=== PATIENT | female | born 1970 | race Caucasian/White ===

== ENCOUNTER 2019-10-08 05:58 | Day surgery (SDC) | payer OTHER ==
[2019-10-05 10:46] LABS: HEMATOCRIT 41.1 % (36.0-47.0); MEAN CORPUSCULAR HEMOGLOBIN 31.1 pg (27.0-33.4); MEAN CORPUSCULAR VOLUME 91 fl (80-97); PLATELET COUNT 152 10^3/uL (150-450); RED CELL DISTRIBUTION WIDTH 12.9 % (11.5-14.0); WHITE BLOOD COUNT 3.5 10^3/uL (4.0-10.5)
[2019-10-05 11:00] LABS: ANION GAP 7 (5-19); BLOOD UREA NITROGEN 10 mg/dL (7-20); CALCIUM 8.9 mg/dL (8.4-10.2); CARBON DIOXIDE 25 mmol/L (22-30); CHLORIDE 109 mmol/L (98-107); GLUCOSE 85 mg/dL (75-110); POTASSIUM 3.2 mmol/L (3.6-5.0)
--- NOTE | 2019-10-05 21:37 | EKG REPORT ---
SEVERITY:- NORMAL ECG - SINUS RHYTHM : Confirmed by: Sanjay Gross 05-Oct-2019 21:37:30
[~2019-10-08 05:58] MED LIST: CEFAZOLIN 2 GM/D5W RTU 2 GM/50 ML RTUPB IV ONE; CEFAZOLIN SODIUM 2 GM in DEXTROSE 5%-WATER 100 ML IV PRN; LACTATED RINGERS 1000 ML IV PRN; LIDOCAINE 0.5% INJ-PF (5 MG/ML) 50 ML SDV SUBCUT PRN
[2019-10-08] MEDS ORDERED: FENTANYL CITRATE INJ/PF 250 MCG/5 ML AMPULE ONE (07:13)
[2019-10-08] MEDS ORDERED: MORPHINE SULFATE 10 MG/ML INJ ONE (07:14)
[2019-10-08] MEDS ORDERED: PROPOFOL INJ 200 MG/20 ML VIAL IV ONE (07:14)
[2019-10-08] MEDS ORDERED: BUPIVACAINE INJ/PF LIPOSOME/PF 266 MG/20 ML SDV ONE (07:14)
[2019-10-08] MEDS ORDERED: MIDAZOLAM 2 MG/2 ML INJ ONE (07:15)
[2019-10-08] MEDS ORDERED: FENTANYL CITRATE INJ/PF 100 MCG/2 ML AMPUL IV PRN (09:01)
[2019-10-08] MEDS ORDERED: MORPHINE SULFATE 10 MG/ML INJ IV PRN (09:01)
[2019-10-08] MEDS ORDERED: DIPHENHYDRAMINE HCL 50 MG/ML VIAL IV PRN (09:01)
[2019-10-08] MEDS ORDERED: MEPERIDINE HCL/PF INJ 25 MG/1 ML DISP.SYRIN IV PRN (09:01)
[2019-10-08] MEDS ORDERED: PROMETHAZINE HCL INJ 25 MG/1 ML VIAL IV PRN (09:01)
--- NOTE | 2019-10-08 09:30 | Operative Report ---
Nonrecallable Operative Report DATE OF SURGERY: 10/08/19 PREOPERATIVE DIAGNOSIS: Inguinal hernia right POSTOPERATIVE DIAGNOSIS: Right femoral hernia OPERATION: Diagnostic laparoscopy with Prashanth repair of right femoral hernia SURGEON: EDA LEE 1[employer] SUPERVISOR: CHASITY SARABIA ANESTHESIA: GA TISSUE REMOVED OR ALTERED: None COMPLICATIONS: None ESTIMATED BLOOD LOSS: 10 cc INTRAOPERATIVE FINDINGS: See note PROCEDURE: Patient was brought to the operating awake alert stable condition placed in the operative table supine position induced under general anesthesia and intubated the abdomen was prepped and draped in usual sterile fashion a Winkler catheter was placed. After appropriate timeout site verification the procedure commenced. A curvilinear infraumbilical incision was made with a 15 blade dissection was carried down through subcutaneous tissue with Bovie cautery the rectus fascia was identified it was opened transversely with a 15 blade the posterior sheath was identified after we retracted the rectus muscle laterally. On top of the posterior sheath we then placed the spacemaker balloon. This this was easily manipulated down to the pubic symphysis. We started insufflating the balloon under direct vision as we insufflated the balloon we felt a pop and then immediately noted the intra-abdominal contents. It appeared that the posterior peritoneum ruptured from previous scar tissue as the patient had a previous . We therefore remove the balloon. I then placed the working trocar into the peritoneum and made intra-abdominal visualization which revealed no evidence of a direct inguinal hernia however I could not really identify the femoral canal. There he there was no significant incarceration of bowel or omentum into a direct or indirect inguinal hernia sac. I therefore removed the camera and reduce the pneumoperitoneum we then made a incision in the right groin and the inguinal crease with a 15 blade we carried dissection down through subcutaneous tissue with Bovie cautery we then identified the external oblique this was opened in line with its fibers I mobilized the external oblique to gain better access to the internal ring and noted no evidence of a hernia I did identify the round ligament. However upon dissecting the round ligament did not identify a direct or indirect sac. I then mobilized the transversalis fascia along the pelvic rim I did identify the femoral canal it appeared that there was a plug of fat within the femoral canal up against the femoral vein which could be corresponding to the lump that the patient felt. And there was a weakness in the floor of the inguinal canal. I therefore elected to perform a Prashanth repair to close the femoral week this and the inguinal floor. We mobilized we identified the Martell's ligament and placed 0 Ethibond sutures between the in inguinal ligament Martell's ligament and the conjoined tendon. Thereby closing off the femoral canal. The transition stitch was made identifying the femoral vein sheath Martell's ligament and the conjoined tendon this was also closed. Once the femoral canal was repaired we anesthetized the area with Exparel solution and then closed the external oblique with a running 2-0 Vicryl suture we closed the Rosa Maria's fascia with interrupted 3-0 Vicryl suture and skin was closed with intracuticular 4-0 Monocryl. At the umbilical port site we closed the fascia with 0 Vicryl and then closed the skin with 4-0 Monocryl Steri-Strips completed the procedure estimated blood loss was less than 10 cc sponge and needle counts correct x2 the patient was awakened in the operating extubated transferred recovery in stable condition no complications. CHUCHO Summers was present for the entire procedure for help with wound retraction wound closure
[2019-10-08] MEDS ORDERED: OXYCODONE-ACETAMINOPHEN 5-325 MG TABLET PO PRN (09:34)
--- NOTE | 2019-10-08 09:34 | Discharge Summary ---
Discharge Summary (SDC) - Discharge Final Diagnosis: Right inguinal hernia Date of Surgery: 10/08/19 Discharge Date: 10/08/19 Condition: Good Treatment or Instructions: No lifting of any greater than 5 to 10 pounds for the next 4 to 6 weeks Prescriptions: Oxycodone HCl/Acetaminophen [Percocet 10-325 Mg Tablet] 1 each PO Q6HP PRN #15 tablet PRN Reason: Referrals: HANNAH WESTFALL MD [Primary Care Provider] - Discharge Activity: Activity As Tolerated, No Lifting Over 10 Pounds Report the Following to Your Physician Immediately: Shortness of Breath, Nausea, Vomiting - Patient needs a follow-up appointment with me in 2 to 3 weeks, Fever over 101 Degrees
[2019-10-08] MEDS: FENTANYL CITRATE INJ/PF 100 MCG/2 ML AMPUL ONE ×2 (09:52→10:00)
[2019-10-08] MEDS ORDERED: OXYCODONE-ACETAMINOPHEN 5-325 MG TABLET ONE (10:27)
[2019-10-08] MEDS ORDERED: ROCURONIUM BROMIDE INJ 50 MG/5 ML VIAL IV ONE (11:00)
[2019-10-08] MEDS ORDERED: LIDOCAINE 2% INJ-PF (20 MG/ML) 2 ML AMPUL ONE (11:00)
[2019-10-08] MEDS ORDERED: DEXAMETHASONE SOD PHOSPHATE INJ 4 MG/1 ML VIAL ONE (11:00)
[2019-10-08] MEDS ORDERED: GLYCOPYRROLATE 1 MG/5 ML VIAL ONE (11:00)
[2019-10-08] MEDS ORDERED: ONDANSETRON HCL INJ/PF 4 MG/2 ML SDV ONE (11:00)
[2019-10-08] MEDS ORDERED: SUCCINYLCHOLINE CHLORIDE INJ 200 MG/10 ML VIAL ONE (11:00)
[2019-10-08] MEDS ORDERED: NEOSTIGMINE METHYLSULFATE 10 MG/10 ML VIAL ONE (11:00)
[2019-10-08 12:43] VITALS: BP 124/78
== END 2019-10-08 11:25 | disposition home or self-care (01) ==
LOC: OROUT 05:58
PROVIDERS: ATTEND Surgery
DX: K41.90 Unilateral femoral hernia, without obstruction or gangrene, not specified as recurrent (principal); J45.909 Unspecified asthma, uncomplicated; I10 Essential (primary) hypertension; K21.9 Gastro-esophageal reflux disease without esophagitis; F17.210 Nicotine dependence, cigarettes, uncomplicated; Z79.899 Other long term (current) drug therapy; Z88.5 Allergy status to narcotic agent; Z03.818 Encounter for observation for suspected exposure to other biological agents ruled out
CPT/HCPCS: 49659; 93005; 36415; 85027; 87635; 80048; 93010; 00830; C1758; C1713; J2250; J3490 ×3; J1100; J3010 ×2; J2710; J0330; J2405; J2704; J0690; C9290; C9803; 830; J2270; J7060